=== PATIENT | male | born 1970 | race Caucasian/White ===

== ENCOUNTER 2018-11-30 06:58 | Outpatient (CLI) | payer BC ==
--- NOTE | 2018-11-30 07:34 | ULT ---
EXAM: Abdominal ultrasound complete: HISTORY: Abdominal pain COMPARISON: None FINDINGS: The liver appears unremarkable. Multiple mobile gallstones without gallbladder wall thickening or pericholecystic fluid. The common bile duct is Within normal limits. Visualized pancreas: Unremarkable. Visualized abdominal aorta: Unremarkable. Visualized IVC: Unremarkable. Visualized spleen: Unremarkable. Visualized kidneys: No evidence for renal hydronephrosis. 0.6 x 1.2 cm shadowing opacity in the left kidney suspicious for nonobstructing stone. No mass, abscess, adenopathy, or abnormal fluid collection or other acute process. IMPRESSION: Cholelithiasis without evidence for acute cholecystitis. Shadowing opacity in the left kidney suspicious for nonobstructing stone.
== END 2018-11-30 06:59 | disposition home or self-care (01) ==
LOC: SCSULT 06:58
PROVIDERS: ATTEND Family Medicine
DX: R10.9 Unspecified abdominal pain (principal); K80.20 Calculus of gallbladder without cholecystitis without obstruction; R93.422 Abnormal radiologic findings on diagnostic imaging of left kidney
CPT/HCPCS: 76700

== ENCOUNTER 2018-12-14 15:10 | Outpatient (CLI) | payer BC ==
[2018-12-14 15:55] LABS: #Eosinphils 0.2 thou/uL (0.0-0.7); #Lymphocytes 3.4 thou/uL (1.20-3.40); #Monocytes 0.8 thou/uL (0.11-0.59); #Neutrophils 7.6 thou/uL (1.40-6.50); %Basophils 0.3 % (0.0-1.0); %Eosinophils 1.5 % (0.0-10.0); %Neutrophils 63.1 % (42.0-75.0); Hemoglobin 15.6 g/dL (14.0-18.0); Mean Corpuscular HGB CONC 34.5 g/dL (32.0-36.0); Mean Corpuscular Hemoglobin 32.2 pg (27.0-31.0); Mean Corpuscular Volume 93.5 fL (78.0-98.0); Mean Platelet Volume 7.6 fL (7.4-10.4); Platelet Count 320 thou/uL (130-400); RBC Distribution Width 11.2 % (11.5-14.5); Red Blood Cell (RBC) Count 4.84 mill/uL (4.70-6.10); White Blood Cell (WBC) Count 12.1 thou/uL (4.8-10.8)
[2018-12-14 16:20] LABS: ALT (SGPT) 18 U/L (8-55); AST (SGOT) 21 U/L (5-34); Albumin 4.7 g/dL (3.5-5.0); Alkaline Phosphatase 66 U/L (40-150); Anion Gap 11 mmol/L (10-20); BUN (Urea Nitrogen) 17 mg/dL (8.9-20.6); Bilirubin, Direct 0.2 mg/dL (0.1-0.3); Bilirubin, Total 0.6 mg/dL (0.2-1.2); Calc. Creatinine Clearance 0 mL/min (70-130); Calcium 9.9 mg/dL (7.8-10.44); Carbon Dioxide 26 mmol/L (22-29); Chloride 105 mmol/L (98-107); Estimated GFR-MDRD 85; Globulin 2.2 g/dL (2.4-3.5); Glucose 96 mg/dL (70-105); Potassium 4.3 mmol/L (3.5-5.1); Protein, Total 6.9 g/dL (6.0-8.3); Sodium 138 mmol/L (136-145)
== END 2018-12-14 15:11 | disposition home or self-care (01) ==
LOC: LABBT 15:10
PROVIDERS: ATTEND Surgery
DX: Z01.812 Encounter for preprocedural laboratory examination (principal); K80.20 Calculus of gallbladder without cholecystitis without obstruction
CPT/HCPCS: 80053; 80076; 85025

== ENCOUNTER 2018-12-15 10:31 | Day surgery (SDC) | payer BC ==
[2018-12-14 15:27] VITALS: BMI 27.6
[2018-12-15] MEDS ORDERED: Sodium Chloride 0.9% 100 ML ONE (11:48)
[2018-12-15] MEDS ORDERED: cefOXitin 2 GM VIAL ONE (11:48)
[2018-12-15] MEDS ORDERED: Bupivacaine/Epinephrine 0.25% 30 ML VIAL ONE (13:28)
[2018-12-15] MEDS ORDERED: Fentanyl 250 MCG/5 ML VIAL ONE (13:31)
[2018-12-15] MEDS ORDERED: Fentanyl 100 MCG/2 ML VIAL ONE (15:06)
--- NOTE | 2018-12-18 14:30 | OP ---
DATE OF PROCEDURE: 12/15/2018 PREOPERATIVE DIAGNOSIS: Symptomatic cholelithiasis. PROCEDURE PERFORMED: Laparoscopic cholecystectomy. INDICATIONS: A 48-year-old male, who has been having severe mid epigastric and right upper quadrant pain radiating to back, associated with nausea. Ultrasound showed cholelithiasis. FINDINGS: There was some moderate adhesions to the lower gallbladder. The cystic duct was small caliber. No evidence of choledocholithiasis. DESCRIPTION OF PROCEDURE: After informed consent was obtained, the patient was taken to the operating room, given general endotracheal anesthesia, placed in the supine position. Abdomen was prepped and draped in usual fashion. Local anesthesia infiltrated subcutaneously and deep. A 12 mm incision was performed. Subcu divided sharply. The fascia grasped and 2 stay sutures of 0 Vicryl placed in each side of midline. Midline incised. Digital palpation revealed no local adhesions. A blunt 12 mm trocar inserted. Pneumoperitoneum was created to a pressure of 15 mmHg. A 0-degree laparoscope was inserted under direct vision. Three 5 mm ports were placed subcostally. Gallbladder was grasped and advanced superiorly. The adhesions were lysed. The peritoneum opened. The cystic duct and artery were dissected out. A clip was placed at the base of the gallbladder. The cystic duct was triply ligated with hemoclips and divided. The artery triply ligated with hemoclips and divided. The gallbladder removed from its fossa utilizing electrocautery removed from the abdomen through the umbilical port. Hemostasis assured. Trocars and retractors removed. The fascia closed with interrupted 0 Vicryl suture. The skin closed with interrupted 4-0 Rapide. Dermabond applied. The patient tolerated the procedure well, transferred to Recovery in good condition. Sponge and needle count verified correct x2. Job ID: [id number]
== END 2018-12-15 16:30 | disposition home or self-care (01) ==
LOC: SDC 10:31
PROVIDERS: ATTEND Surgery
PROC: 0FT44ZZ Resection of Gallbladder, Percutaneous Endoscopic Approach (ICD-10-PCS; principal; 2018-12-15)
DX: K80.10 Calculus of gallbladder with chronic cholecystitis without obstruction (principal); R48.0 Dyslexia and alexia; J30.1 Allergic rhinitis due to pollen; Z79.899 Other long term (current) drug therapy
CPT/HCPCS: 88304; J0690; J0694; J3010; J3490

== ENCOUNTER 2019-06-14 08:33 | Emergency (ER) | payer BC ==
--- NOTE | 2019-06-14 09:23 | CT ---
CT Brain WO Con: 06/14/2019 9:02 AM CLINICAL HISTORY: History of syncope and head injury. IMAGING TECHNIQUE: Multiple CT images were obtained of the brain without IV contrast. COMPARISON: Prior exam dated March 30, 2016 FINDINGS: Brain: No acute infarct or hemorrhage is evident. No midline shift. Ventricles: Normal. No hydrocephalus.. Skull: Intact.. Visualized Paranasal sinuses: There is stable complete opacification of the left maxillary sinus. Rem aining paranasal sinuses are clear. Mastoid air cells:Clear. Extracranial soft tissues:Normal. IMPRESSION: 1. No acute intracranial abnormality. 2. Complete opacification of the left maxillary sinus is stable to the comparison
--- NOTE | 2019-06-14 09:28 | CT ---
CT CERVICAL SPINE WITH CORONAL AND SAGITTAL REFORMATIONS AND NO IV CONTRAST: HISTORY: Injury, neck pain FINDINGS: Mild degenerative changes are present. No fracture, subluxation or facet malalignment is identified. No prevertebral soft tissue swelling is apparent. The visualized lung apices are unremarkable. IMPRESSION: No CT evidence for fracture or traumatic subluxation.
[2019-06-14 09:32] LABS: #Basophils 0.1 thou/uL (0.0-0.2); #Eosinphils 0.2 thou/uL (0.0-0.7); #Monocytes 0.8 thou/uL (0.11-0.59); #Neutrophils 6.3 thou/uL (1.40-6.50); %Eosinophils 1.7 % (0.0-10.0); %Monocytes 7.7 % (0.0-10.0); %Neutrophils 60.6 % (42.0-75.0); Hemoglobin 14.6 g/dL (14.0-18.0); Mean Corpuscular HGB CONC 33.1 g/dL (32.0-36.0); Mean Corpuscular Volume 93.7 fL (78.0-98.0); Mean Platelet Volume 7.9 fL (7.4-10.4); Platelet Count 283 thou/uL (130-400); RBC Distribution Width 11.3 % (11.5-14.5); Red Blood Cell (RBC) Count 4.69 mill/uL (4.70-6.10); White Blood Cell (WBC) Count 10.3 thou/uL (4.8-10.8)
[2019-06-14 09:40] LABS: ALT (SGPT) 18 U/L (8-55); AST (SGOT) 19 U/L (5-34); Albumin 3.9 g/dL (3.5-5.0); Alkaline Phosphatase 68 U/L (40-110); Anion Gap 10 mmol/L (10-20); BUN (Urea Nitrogen) 13 mg/dL (8.9-20.6); Bilirubin, Total 0.7 mg/dL (0.2-1.2); Calc. Creatinine Clearance 0 mL/min (70-130); Calcium 8.9 mg/dL (7.8-10.44); Carbon Dioxide 27 mmol/L (22-29); Chloride 108 mmol/L (98-107); Estimated GFR-MDRD 79; Globulin 2.2 g/dL (2.4-3.5); Glucose 114 mg/dL (70-105); Potassium 3.9 mmol/L (3.5-5.1); Protein, Total 6.1 g/dL (6.0-8.3); Sodium 141 mmol/L (136-145)
== END 2019-06-14 10:03 | disposition home or self-care (01) ==
LOC: ERS 08:33
DX: R55 Syncope and collapse (principal)
CPT/HCPCS: 36415; 70450; 72125; 80053; 84484; 85025; 93005